=== PATIENT | female | born 1980 ===

== ENCOUNTER → 2020-07-24 13:56 | Outpatient (BNVA) | payer OTHER, SELFPAY | PROVIDERS: PCP Internal Medicine; Visit Provider Advanced Practice Midwife | DX: Z76.89 Persons encountering health services in other specified circumstances (principal) ==

== ENCOUNTER 2020-08-01 16:10 | Outpatient (REF) | payer OTHER, SELFPAY ==
--- NOTE | 2020-08-01 16:22 | US_ITS ---
EXAMINATION: ULTRASOUND TRANSVAGINAL AND PELVIC COMPLETE CLINICAL INFORMATION: Displacement of intrauterine contraceptive device. COMPARISON: None TECHNIQUE: Multiple 2-D grayscale and color Doppler transabdominal and transvaginal ultrasound images of the pelvis were obtained. FINDINGS: Uterus: Anteverted/retroflexed measuring 11.1 x 3.9 x 5.2 cm. The endometrial stripe measures up to 0.9 cm at the level the fundus. An echogenic IUD is seen extending to the level the fundus without surrounding abnormality. The cervix is unremarkable. Right ovary: 2.4 x 1.7 x 1.6 cm with a volume of 3.4 cc. Color Doppler showed no abnormal vascular flow. Left ovary: 2.4 x 2.3 x 1.6 cm with a volume of 4.6 cc. Color Doppler showed no abnormal vascular flow. Urinary bladder: Mildly distended without focal abnormality. US/US transvaginal IMPRESSION: 1. Anteverted/retroflexed uterus with IUD within the endometrial canal extending to the level the fundus without focal abnormality. No other significant abnormality.
--- NOTE | 2020-08-01 16:22 | US_ITS ---
EXAMINATION: ULTRASOUND TRANSVAGINAL AND PELVIC COMPLETE CLINICAL INFORMATION: Displacement of intrauterine contraceptive device. COMPARISON: None TECHNIQUE: Multiple 2-D grayscale and color Doppler transabdominal and transvaginal ultrasound images of the pelvis were obtained. FINDINGS: Uterus: Anteverted/retroflexed measuring 11.1 x 3.9 x 5.2 cm. The endometrial stripe measures up to 0.9 cm at the level the fundus. An echogenic IUD is seen extending to the level the fundus without surrounding abnormality. The cervix is unremarkable. Right ovary: 2.4 x 1.7 x 1.6 cm with a volume of 3.4 cc. Color Doppler showed no abnormal vascular flow. Left ovary: 2.4 x 2.3 x 1.6 cm with a volume of 4.6 cc. Color Doppler showed no abnormal vascular flow. Urinary bladder: Mildly distended without focal abnormality. US/US pelvic complete IMPRESSION: 1. Anteverted/retroflexed uterus with IUD within the endometrial canal extending to the level the fundus without focal abnormality. No other significant abnormality.
== END 2020-08-01 16:11 | disposition home or self-care (01) ==
LOC: HO.US 16:10
PROVIDERS: Visit Provider Advanced Practice Midwife
DX: T83.32XA Displacement of intrauterine contraceptive device, initial encounter (principal)
CPT/HCPCS: 76830; 76856

== ENCOUNTER → 2020-08-12 10:15 | Outpatient (BNVA) | payer OTHER, SELFPAY | PROVIDERS: PCP Internal Medicine; Visit Provider Advanced Practice Midwife | DX: Z76.89 Persons encountering health services in other specified circumstances (principal) ==

== ENCOUNTER 2022-01-05 10:37 | Outpatient (REF) | payer OTHER, SELFPAY ==
[2022-01-05 13:26] LABS: Syphilis Screen Nonreactive (Nonreactive)
[2022-01-05 16:02] LABS: CT PCR NOT DETECTED (Not Detect.); NG PCR NOT DETECTED (Not Detect.)
[2022-01-06 05:06] LABS: HBc Num1 0.05 S/CO (0.00-0.79); HIV AB/AG Nonreactive (Nonreactive); HIV Num 1 0.06 S/CO (0.00-0.99); Hepatitis B Core Antibody Nonreactive (Nonreactive); ~HepC Num1 0.06 S/CO (0.00-0.79); ~Hepatitis C Antibody Nonreactive (Nonreactive)
[2022-01-08 17:57] LABS: HPV mRNA E6/E7 rflx Not Detected (Not Detected)
== END 2022-01-05 10:38 | disposition home or self-care (01) ==
LOC: HO.LAB 10:37
PROVIDERS: PCP Internal Medicine; Visit Provider Advanced Practice Midwife
DX: Z01.419 Encounter for gynecological examination (general) (routine) without abnormal findings (principal); Z11.51 Encounter for screening for human papillomavirus (HPV); Z20.2 Contact with and (suspected) exposure to infections with a predominantly sexual mode of transmission
CPT/HCPCS: 36415; 86704; 86780; 86803; 87389; 87491; 87591; 87624; 88142

== ENCOUNTER 2022-09-29 15:33 | Outpatient (REF) | payer OTHER, SELFPAY ==
--- NOTE | ~2022-09-29 | MM_ITS ---
EXAMINATION: MM SCREENING DIGITAL BREAST TOMOSYNTHESIS, BILATERAL CLINICAL INFORMATION: Screening. Asymptomatic. The lifetime risk of breast cancer based on the Tyrer-Cuzick Model is 8.7%. COMPARISON: Mammography: August 06, 2014 and October 06, 2013 TECHNIQUE: Digital breast tomosynthesis is performed in both the craniocaudal and mediolateral oblique views along with computer-aided detection (CAD). Synthesized 2D images are generated from the tomosynthesis. FINDINGS: There are scattered areas of fibroglandular density (ACR BI-RADS breast composition Category b). There are no significant masses, abnormal calcifications, or other abnormalities. MM/MM tomosynthesis screening BI IMPRESSION: No significant changes from prior exam. ASSESSMENT: BI-RADS 1: Negative RECOMMENDATION: Routine annual mammography screening. This patient's information was entered into a reminder system with a target due date for their next mammogram.
== END 2022-09-29 15:34 | disposition home or self-care (01) ==
LOC: HO.MAMMO 15:33
PROVIDERS: PCP Internal Medicine; Visit Provider Advanced Practice Midwife
DX: Z12.31 Encounter for screening mammogram for malignant neoplasm of breast (principal)
CPT/HCPCS: 77063; 77067

== ENCOUNTER 2023-01-07 10:37 | Outpatient (REF) | payer OTHER, SELFPAY | END 2023-01-07 10:38 | disposition home or self-care (01) | LOC: HO.LNP 10:37 | PROVIDERS: PCP Internal Medicine; Visit Provider Advanced Practice Midwife | DX: Z13.89 Encounter for screening for other disorder (principal) ==

== ENCOUNTER 2023-01-07 11:15 | Outpatient (REF) | payer OTHER, SELFPAY ==
[2023-01-07 15:44] LABS: CT PCR NOT DETECTED (Not Detect.); NG PCR NOT DETECTED (Not Detect.)
[2023-01-08 08:49] LABS: HBc Num1 0.07 S/CO (0.00-0.79); HIV AB/AG Nonreactive (Nonreactive); HIV Num 1 0.07 S/CO (0.00-0.99); Hepatitis B Core Antibody Nonreactive (Nonreactive); ~HepC Num1 0.07 S/CO (0.00-0.79); ~Hepatitis C Antibody Nonreactive (Nonreactive)
[2023-01-08 08:55] LABS: Syphilis Screen Nonreactive (Nonreactive)
[2023-01-08 11:04] LABS: BV Int Neg Control Negative (Negative); BV Int Pos Control Positive (Positive)
== END 2023-01-07 11:16 | disposition home or self-care (01) ==
LOC: HO.LAB 11:15
PROVIDERS: Visit Provider Advanced Practice Midwife
DX: Z11.4 Encounter for screening for human immunodeficiency virus [HIV] (principal); Z20.2 Contact with and (suspected) exposure to infections with a predominantly sexual mode of transmission; N89.8 Other specified noninflammatory disorders of vagina
CPT/HCPCS: 0353U; 86704; 86780; 86803; 87389; 87480; 87510; 87660

== ENCOUNTER 2023-01-08 13:28 | Outpatient (REF) | payer OTHER, SELFPAY ==
--- NOTE | ~2023-01-08 | US_ITS ---
EXAMINATION: US PELVIS CLINICAL INFORMATION: Other noninflammatory disorders of ovary and fallopian tube. COMPARISON: Pelvic ultrasound 08/01/2020. TECHNIQUE: Ultrasound of the pelvis is performed using both transabdominal and transvaginal transducers along with Doppler. Transvaginal imaging is performed due to inadequate visualization transabdominally. FINDINGS: Uterus: The uterus is anteverted and measures 11.2 x 3.9 x 5.7 cm. IUD appears in good position. Nabothian cysts in the cervix. The double wall endometrial thickness is 2 mm. The uterus is smooth in contour and has normal myometrial echogenicity. No visible fibroid. Adnexa: Both ovaries are visualized. There is normal color flow to the adnexa. There is no ovarian torsion. There is no pelvic ascites or fluid collection. Right ovary measures 3.8 x 3.2 x 4.2 cm, volume 27 mL. There is a 3.5 cm mildly complex cyst with single thin septation and layering debris. This is an almost certainly benign cysts. No follow-up imaging recommended. No internal vascularity. Left ovary measures 3.3 x 2.1 x 2.4 cm, volume 9 mL. There is a corpus luteal cyst in the left ovary. US/US pelvic and transvaginal IMPRESSION: IUD in good position. New 3.5 cm mildly complex cyst with single thin septation and layering debris. This is an almost certainly benign cyst in a premenopausal woman. Best Practice Guideline: No follow-up imaging recommended for
== END 2023-01-08 13:29 | disposition home or self-care (01) ==
LOC: HO.US 13:28
PROVIDERS: PCP Internal Medicine; Visit Provider Advanced Practice Midwife
DX: N83.8 Other noninflammatory disorders of ovary, fallopian tube and broad ligament (principal)
CPT/HCPCS: 76830; 76856

== ENCOUNTER → 2023-02-03 13:08 | Outpatient (BNVA) | payer OTHER, SELFPAY | PROVIDERS: PCP Internal Medicine; Visit Provider Advanced Practice Midwife ==

== ENCOUNTER 2023-03-08 13:24 | Outpatient (REF) | payer OTHER, SELFPAY ==
--- NOTE | ~2023-03-08 | US_ITS ---
EXAMINATION: US PELVIS CLINICAL INFORMATION: Follow-up ovarian cyst; the last menstrual period is not specified. COMPARISON: None available. TECHNIQUE: Ultrasound of the pelvis is performed using both transabdominal and transvaginal transducers along with Doppler. Transvaginal imaging is performed due to inadequate visualization transabdominally. FINDINGS: Uterus: The uterus is anteverted and retroflexed. The uterus measures 10.2 x 3.9 x 4.8 cm. The double wall endometrial thickness is thin and is obscured by an intrauterine device, which is properly situated within the endometrial canal. The uterus is smooth in contour and has normal myometrial echogenicity. No visible fibroid. Adnexa: Both ovaries are visualized. There is normal color flow to the adnexa. There is no ovarian torsion. There is no pelvic ascites or fluid collection. A 1.7 x 1.2 x 1.6 cm left parapelvic cyst is noted. Right ovary measures 3.4 x 2.4 x 2.8 cm, volume 12.3 mL. There are physiologic follicles. Left ovary measures 2.7 x 1.8 x 2.5 cm, volume 6.1 mL. There are physiologic follicles. US/US pelvic and transvaginal IMPRESSION: 1. An intrauterine device is seen, properly situated within the endometrial canal. 2. A 1.7 cm left paraovarian cyst is noted. 3. The previously identified mildly complex 3.5 cm right ovarian cyst is not redemonstrated.
== END 2023-03-08 13:25 | disposition home or self-care (01) ==
LOC: HO.US 13:24
PROVIDERS: PCP Internal Medicine; Visit Provider Advanced Practice Midwife
DX: N83.291 Other ovarian cyst, right side (principal); R10.2 Pelvic and perineal pain
CPT/HCPCS: 76830; 76856

== ENCOUNTER 2023-03-23 15:02 | Outpatient (AMB) | payer OTHER, SELFPAY ==
--- NOTE | 2023-03-23 15:03 | A.OFFVIS_ITS ---
Intake Intake Visit Reasons: TV US Follow Up Intake Note: cell #[phone] The patient agreed to use of a medical coding manager during this encounter. Scribed for ANA Calle by Lety Hogue medical coding manager, on 03/23/2023 at 3:07 pm EST. Allergies No Known Allergies Allergy (Verified 03/23/23 15:03) HPI HPI Comments History of Present Illness Details Telehealth visit 3:07 pm -3:15 pm. Phone Call due to Covid-19 Pandemic. She presents via phone to discuss US results regarding follow up for right complex ovarian cyst. She is doing well with no complaints. [facility] Medical History Complex cyst of right ovary Hx of anxiety disorder Surgical History Hx of section Family History Maternal Grandmother Colon cancer Social History Alcohol intake: current Alcohol intake frequency: holidays/special occasions only Patient Tobacco Use Status: Never used Tobacco Substance Use Type: Marijuana Current occupational status: employed Sexual orientation: Straight/Heterosexual Gender identity: Female Female Reproductive History Menstrual Age of Menarche: 17 Physical Exam Const General: cooperative, healthy appearing, comfortable, no acute distress, well developed, alert and awake Results Reviewed Results Reviewed: EXAMINATION:? US PELVIS CLINICAL INFORMATION:? Follow-up ovarian cyst; the last menstrual period is not specified. COMPARISON: None available. TECHNIQUE: Ultrasound of the pelvis is performed using both transabdominal and transvaginal transducers along with Doppler. Transvaginal imaging is performed due to inadequate visualization transabdominally. FINDINGS: Uterus: The uterus is anteverted and retroflexed. The uterus measures 10.2 x 3.9 x 4.8 cm. The double wall endometrial thickness is thin and is obscured by an intrauterine device, which is properly situated within the endometrial canal. The uterus is smooth in contour and has normal myometrial echogenicity. ? No visible fibroid. Adnexa: Both ovaries are visualized. There is normal color flow to the adnexa. There is no ovarian torsion. There is no pelvic ascites or fluid collection. A 1.7 x 1.2 x 1.6 cm left parapelvic cyst is noted. Right ovary measures 3.4 x 2.4 x 2.8 cm, volume 12.3 mL. There are physiologic follicles. Left ovary measures 2.7 x 1.8 x 2.5 cm, volume 6.1 mL. There are physiologic follicles. US/US pelvic and transvaginal IMPRESSION: ? 1. An intrauterine device is seen, properly situated within the endometrial canal. ? 2. A 1.7 cm left paraovarian cyst is noted. ? 3. The previously identified mildly complex 3.5 cm right ovarian cyst is not redemonstrated. Assessment & Plan Assessment & Plan (1) Encounter to discuss test results: Code(s): Z71.2 - Person consulting for explanation of examination or test findings Plan: Discussed: US findings of: 1. An intrauterine device is seen, properly situated within the endometrial canal. 2. A 1.7 cm left paraovarian cyst is noted. 3. The previously identified mildly complex 3.5 cm right ovarian cyst is not redemonstrated. All of her questions and concerns were addressed to the best of my ability and shared decision making. She is agreeable to plan of care. (2) Left ovarian cyst: Code(s): N83.202 - Unspecified ovarian cyst, left side Telehealth Telehealth Location of provider rendering services: practice address Location of patient: other Patient Identification confirmed using: Name, : Yes Telehealth method: video Patient verbally consented to treatment: Yes Patient verbally consented to billing insurance company: Yes Patient informed of any privacy concerns related to visit: Yes Coding Level of Care Code Tele Est Pt Level 2 (73632) Diagnoses Encounter to discuss test results Z71.2 Left ovarian cyst N83.202
== END 2023-03-23 15:18 | disposition home or self-care (01) ==
LOC: HO.HWS 15:03
PROVIDERS: PCP Internal Medicine; Visit Provider Advanced Practice Midwife
DX: N83.202 Unspecified ovarian cyst, left side (principal); Z71.2 Person consulting for explanation of examination or test findings
CPT/HCPCS: 99212

== ENCOUNTER → 2023-03-23 15:02 | Outpatient (BNVA) | payer OTHER, SELFPAY | PROVIDERS: PCP Internal Medicine; Visit Provider Advanced Practice Midwife ==

== ENCOUNTER 2023-05-28 15:14 | Outpatient (REF) | payer OTHER, SELFPAY | END 2023-05-28 15:15 | disposition home or self-care (01) | LOC: HO.LNP 15:14 | PROVIDERS: PCP Internal Medicine; Visit Provider Advanced Practice Midwife | DX: Z13.89 Encounter for screening for other disorder (principal) ==

== ENCOUNTER 2023-05-28 15:14 | Outpatient (AMB) | payer OTHER, SELFPAY ==
--- NOTE | 2023-05-28 15:15 | MHC.OFFVIS ---
Intake Vital Signs 05/28/23 15:18 Height 5 ft 7 in Weight 178 lb 9.191 oz BMI 28.0 BP 110/70 Intake Visit Reasons: vagina lesion Intake Note: The patient agreed to use of a medical delivery technician during this encounter. Scribed for ANA Calle by Savannah Mehta medical delivery technician, on 05/28/2023 at 3:30 pm EST Scale Shooter Required: No Information Interpreted: non-clinical & clinical Care Transition Mgr: Care Transition Mgr Present (Ariadna Rizoloc CHANDLER) Accompanied by: Self / Same As Patient Allergies No Known Allergies Allergy (Verified 05/28/23 15:19) Is last menstrual period known: Yes Last menstrual period: 05/25/23 HPI HPI Comments History of Present Illness Details She presents with complaints of vaginal lump after wiping this morning. Currently sexually active with new partner. Admits to UPI. Uses Mirena IUD for BC. Admits to occasional light spotting in between menses. Denies any odors. Denies bleeding. STD testing offered; she accepts. [facility] Medical History Complex cyst of right ovary Hx of anxiety disorder Surgical History Hx of section Family History Maternal Grandmother Colon cancer Social History Alcohol intake: current Alcohol intake frequency: holidays/special occasions only Patient Tobacco Use Status: Never used Tobacco Substance Use Type: Marijuana Current occupational status: employed Sexual orientation: Straight/Heterosexual Gender identity: Female Female Reproductive History Menstrual Age of Menarche: 17 Date of last menstrual period: 05/25/23 control method: progestin IUCD Review of Systems Const All systems reviewed & are unremarkable except as noted in HPI and below Physical Exam Vital Signs: Last Vital Signs BP 110/70 05/28/23 15:18 BMI result Body Mass Index 28.0 Const General: cooperative, no acute distress, well developed and alert External Female Exam: normal external appearance Speculum Exam - Vagina: normal appearance of the vagina and abnormal vaginal discharge (white, clumpy) Speculum Exam - Cervix: normal appearance of the cervix and Other cervical findings present (IUD strings present) Bimanual exam- vagina & uterus: normal bimanual exam, uterine size normal, uterine shape normal and non-tender Bimanual Exam- Adnexa, other: normal adnexae and no masses Assessment & Plan Assessment & Plan (1) Vulvar lump: Code(s): N90.89 - Other specified noninflammatory disorders of vulva and perineum Plan: Normal exam. Counseled on sebaceous glands. RTO prn. (2) Potential exposure to STD: Code(s): Z20.2 - Contact with and (suspected) exposure to infections with a predominantly sexual mode of transmission Orders: Orders Hepatitis B Core Antibody Today Z20.2 - Contact with and (suspected) exposure to infections with a predominantly sexual mode of transmission HIV Ab/Ag Today Z20.2 - Contact with and (suspected) exposure to infections with a predominantly sexual mode of transmission Hepatitis C Antibody Today Z20.2 - Contact with and (suspected) exposure to infections with a predominantly sexual mode of transmission Syphilis Screen Today Z20.2 - Contact with and (suspected) exposure to infections with a predominantly sexual mode of transmission Coding Level of Care Code Est Pt Level 3 (24636) Diagnoses Vulvar lump N90.89 Potential exposure to STD Z20.2
[2023-05-28 15:18] VITALS: BP 110/70; BMI 28.0
== END 2023-05-28 15:43 | disposition home or self-care (01) ==
PROVIDERS: PCP Internal Medicine; Visit Provider Advanced Practice Midwife
DX: N90.89 Other specified noninflammatory disorders of vulva and perineum (principal); Z20.2 Contact with and (suspected) exposure to infections with a predominantly sexual mode of transmission
CPT/HCPCS: 99213

== ENCOUNTER 2023-05-28 15:48 | Outpatient (REF) | payer OTHER, SELFPAY ==
[2023-05-28 20:49] LABS: CT PCR NOT DETECTED (Not Detect.); NG PCR NOT DETECTED (Not Detect.)
[2023-05-29 03:57] LABS: Syphilis Screen Nonreactive (Nonreactive)
[2023-05-29 04:33] LABS: HBc Num1 0.08 S/CO (0.00-0.79); HIV AB/AG Nonreactive (Nonreactive); HIV Num 1 0.06 S/CO (0.00-0.99); Hepatitis B Core Antibody Nonreactive (Nonreactive); ~HepC Num1 0.04 S/CO (0.00-0.79); ~Hepatitis C Antibody Nonreactive (Nonreactive)
[2023-05-29 12:51] LABS: BV Int Neg Control Negative (Negative); BV Int Pos Control Positive (Positive)
== END 2023-05-28 15:49 | disposition home or self-care (01) ==
LOC: HO.LAB 15:48
PROVIDERS: Visit Provider Advanced Practice Midwife
DX: Z11.4 Encounter for screening for human immunodeficiency virus [HIV] (principal); N76.0 Acute vaginitis
CPT/HCPCS: 0353U; 86704; 86780; 86803; 87389; 87480; 87510; 87660

== ENCOUNTER 2023-10-18 15:47 | Outpatient (REF) | payer OTHER, SELFPAY ==
--- NOTE | ~2023-10-18 | MM_ITS ---
EXAMINATION: MM SCREENING DIGITAL BREAST TOMOSYNTHESIS, BILATERAL CLINICAL INFORMATION: Screening. Asymptomatic. COMPARISON: Mammography: This study is compared with prior exams dating back to 2022. TECHNIQUE: Digital breast tomosynthesis is performed in both the craniocaudal and mediolateral oblique views along with computer-aided detection (CAD). Synthesized 2D images are generated from the tomosynthesis. FINDINGS: There are scattered areas of fibroglandular density (ACR BI-RADS breast composition Category b). There are no significant masses, abnormal calcifications, or other abnormalities. MM/MM tomosynthesis screening BI IMPRESSION: No mammographic evidence of malignancy. ASSESSMENT: BI-RADS BI-RADS 1 - Negative RECOMMENDATION: Routine annual mammography screening. 1 year F/U This examination should not preclude the clinical evaluation of a suspicious palpable abnormality. This patient's information was entered into a reminder system with a target due date for their next mammogram.
== END 2023-10-18 15:48 | disposition home or self-care (01) ==
LOC: HO.MAMMO 15:47
PROVIDERS: PCP Internal Medicine; Visit Provider Internal Medicine
DX: Z12.31 Encounter for screening mammogram for malignant neoplasm of breast (principal)
CPT/HCPCS: 77063; 77067

== ENCOUNTER → 2023-10-18 16:15 | Outpatient (BNV) | payer OTHER, SELFPAY | PROVIDERS: PCP Internal Medicine; Visit Provider Radiology Diagnostic Radiology | DX: Z12.31 Encounter for screening mammogram for malignant neoplasm of breast (principal) | CPT/HCPCS: 77063; 77067 ==

== ENCOUNTER 2024-07-27 15:50 | Outpatient (REF) | payer OTHER, SELFPAY ==
[2024-07-29 12:26] LABS: Bacterial Vaginosis PCR NEGATIVE (Negative); Candida Group PCR NOT DETECTED (Not Detect); Candida glab krusei PCR NOT DETECTED (Not Detect); Trichomonas vaginalis PCR NOT DETECTED (Not Detect)
[2024-07-29 13:40] LABS: CT PCR NOT DETECTED (Not Detect.); NG PCR NOT DETECTED (Not Detect.)
== END 2024-07-27 15:51 | disposition home or self-care (01) ==
LOC: HO.LNP 15:50
PROVIDERS: PCP Internal Medicine; Visit Provider Advanced Practice Midwife
DX: Z01.419 Encounter for gynecological examination (general) (routine) without abnormal findings (principal)
CPT/HCPCS: 0352U; 87491; 87591

== ENCOUNTER 2024-07-27 15:50 | Outpatient (AMB) | payer OTHER, SELFPAY ==
--- NOTE | 2024-07-27 15:55 | MHC.OFFVIS ---
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 Doing well with concerns: Interested in a tubal ligation. Has random cycles with the Mirena. Currently is not sexually active. She denies vaginal itching and irritation. STI screening offered; she accepts. She tries to eat healthy and stays active with exercise. Denies family history of breast or ovarian. Family history of colon cancer-maternal grandmother. Last pap smear 2021, negative. 2017 ASCUS. Mammogram: 2023. COUNT INCLUDES THE [facility] Medical History Hx of anxiety disorder Surgical History Hx of section Family History Maternal Grandmother Colon cancer Social History Alcohol intake: current Alcohol intake frequency: holidays/special occasions only Patient Tobacco Use Status: Never used Tobacco Substance Use Type: Marijuana Current occupational status: employed Sexual orientation: Straight/Heterosexual Gender identity: Female Female Reproductive History Menstrual Age of Menarche: 17 Date of last menstrual period: 07/11/24 control method: progestin IUCD Total pregnancies: 3 Full term: 3 Premature: 0 Number of Living Children: 3 Ab induced: 0 Ab spontaneous: 0 Ectopics: 0 Multiple births: 0 Date of last pap smear: 01/05/22 History of abnormal pap smear: No History of STI: No Review of Systems Const All systems reviewed & are unremarkable except as noted in HPI and below Reports as per HPI Eyes Reports no additional complaints ENT Reports no additional complaints Card Reports no additional complaints Resp Reports no additional complaints GI Reports as per HPI and Reports no additional complaints Reports as per HPI Musc Reports no additional complaints Skin/Breast Reports as per HPI Neuro Reports no additional complaints Psych Reports no additional complaints Endo Reports no additional complaints Alex/Lymph Reports no additional complaints Aller/Immun Reports no additional complaints Physical Exam Vital Signs: Last Vital Signs BP 102/76 07/27/24 15:56 BMI result Body Mass Index 31.8 Const General: cooperative, healthy appearing, no acute distress, well developed and alert Orientation/consciousness: patient oriented x3 HEENT Head: Yes normal to inspection Eyes General: appearance normal, both eyes and all related structures Neck Neck: Yes normal visual inspection Thyroid: Thyroid normal Chest Chest palpation & inspection: normal inspection of the chest and other (no puckering, dimpling, peau de orange, retraction, discharge, masses) Breast/axilla inspection: normal inspection of the breasts Breast/axilla palpation: normal palpation of the breasts Resp Effort & Inspection: normal respiratory effort GI Inspection: Yes normal to inspection Palpation (GI): Soft to palpation Rectal Exam - Female: deferred General: Yes bladder normal to palpation External Female Exam: normal external appearance and normal appearance of the urethra Speculum Exam - Vagina: normal appearance of the vagina, normal palpation and normal vaginal discharge Speculum Exam - Cervix: normal appearance of the cervix, normal palpation and Other cervical findings present (String short at the os) Bimanual exam- vagina & uterus: normal bimanual exam, normal palpation, uterine size normal, bladder normal to palpation, normal palpation and non-tender Bimanual Exam- Adnexa, other: no masses Skin General skin exam: no rashes or lesions noted Rashes: no rashes Neuro General: patient oriented x3 Cognition (Neuro): normal cognition Extrem General: Yes normal to inspection Psych Attitude: cooperative Thought process: Normal thought process present Assessment & Plan Assessment & Plan (1) Encounter for well woman exam with routine gynecological exam: Code(s): Z01.419 - Encounter for gynecological examination (general) (routine) without abnormal findings Category: Medical Plan Discussed: Current recommendations for pap smears per ASCCP guidelines. Breast awareness and periodic breast exams. Mammogram yearly. Maintain a healthy lifestyle including a well balanced diet and routine exercise. Use condoms for STI and prevention. Counseled regarding the efficacy use of CDC vis chart risks benefits of keeping the Mirena IUD in place, verses a tubal ligation risks and benefits. She has several years left with the Mirena device and wants to keep it for now and will consider her options when it is due to be changed out. Colonoscopy >45, or at risk sooner. Patient verbalizes understanding and agrees to the plan of care. She was given opportunity to ask questions and all questions were answered to the best of my ability. 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 This note is constructed using voice recognition software. While every effort has been made to ensure accuracy, humanities coordinator errors may have been included. Coding Level of Care Code Est Pt Prev Care 40-64y(49184) Diagnoses Encounter for well woman exam with routine gynecological exam Z01.419
[2024-07-27 15:56] VITALS: BP 102/76; BMI 31.8
== END 2024-07-27 16:28 | disposition home or self-care (01) ==
LOC: HO.HWS 15:50
PROVIDERS: PCP Internal Medicine; Visit Provider Advanced Practice Midwife
DX: Z01.419 Encounter for gynecological examination (general) (routine) without abnormal findings (principal)
CPT/HCPCS: 99396

== ENCOUNTER 2024-12-07 16:31 | Emergency (ER) | payer OTHER, SELFPAY ==
[2024-12-07 16:42] VITALS: BP 115/73; PULSE 79; RESP 18; TEMP 36.8; O2SAT 96; BMI 31.9
--- NOTE | 2024-12-07 16:43 | ED_ITS ---
HPI - General Adult General Chief complaint: Extremity Injury, Upper Stated complaint: left arm pain Time Seen by Provider: 12/07/24 23:29 Source: patient Limitations: no limitations History of Present Illness ED Provider: Rubi Cutler PA-C HPI narrative: 45-year-old female with a history of anxiety presents with left upper extremity discomfort since this morning. Patient having discomfort over left upper extremity with the radiation to the fingers. Denies weakness of upper extremity, neck pain or paresthesia. Patient denies trauma, new heavy lifting or exercise that could have precipitated her symptoms. Patient states she does perform repetitive activity at work. Pain worse with movement of left upper extremity. Denies chest pain or shortness of breath. Patient states she had an episode of ?tingling sensation around her mouth this morning. Related Data Home Medications ?Medication ?Instructions ?Recorded ?Confirmed levonorgestrel 21 mcg/24 hr (up to intrauterine 07/24/20 8 years) 52 mg intrauterine device (Mirena) Allergies Allergy/AdvReac Type Severity Reaction Status Date / Time No Known Allergies Allergy Verified 12/07/24 16:44 Review of Systems 2 Review of Systems: Yes all other systems are reviewed and are negative Constitutional: Constitutional: Denies fatigue, Denies fever(s) and Denies headache(s) ENT: Denies headache(s) and Denies neck pain Cardiovascular: Cardiovascular: Denies chest pain and Denies dyspnea Respiratory: Respiratory: Denies cough and Denies dyspnea Gastrointestinal: Gastrointestinal: Denies abdominal pain, Denies nausea and Denies vomiting Musculoskeletal: Musculoskeletal: Denies back pain, Reports arthralgias, Denies joint swelling, Denies neck pain, Denies numbness, Reports radiating pain into limb and Denies tingling Neurologic: Denies headache(s), Denies numbness and Denies tingling Endocrine: Endocrine: Denies fatigue PMFSH Past Medical History Attestation statement: The following information was validated with the patient. Medical History Hx of anxiety disorder Surgical History Hx of section Family History Family History Maternal Grandmother Colon cancer Social History Social History Alcohol intake: current Alcohol intake frequency: does not drink Patient Tobacco Use Status: Never used Tobacco Smoked in Last 30 Days: No Use of substances other than those prescribed or required for medical reasons: Yes Substance Use Type: Marijuana Advance Directives: No Advance Directives Information Provided: No Do you have a plan to hurt others: No Plan Patient : No Current occupational status: employed Sexual orientation: Straight/Heterosexual Gender identity: Female Physical Exam ED Vital Signs: Vital Signs - 24 hr 12/07/24 16:42 12/07/24 22:16 Temperature 98.3 F 97.7 F Pulse Rate 79 75 Respiratory Rate 18 16 Blood Pressure 115/73 108/84 Pulse Oximetry 96 98 Oxygen Delivery Method Room Air Room Air BMI result Body Mass Index 31.9 Const Other: Alert well-appearing Orientation/consciousness: patient oriented x3 Resp Effort & Inspection: normal respiratory effort Cardio Other: Normal peripheral perfusion Skin Other: Warm dry no rash Neuro General: patient oriented x3, gait normal, no focal motor deficits and CN's II- XI intact bilaterally Extrem Other: Strength 5/5 bilateral upper extremities with resistance, pain elicited with resisted range of motion of left upper extremity Psych Other: Cooperative, anxious to some degree Course Course Course Narrative: This is a rapid medical exam performed by Parris Batista NP: Additional HPI, ROS, PE not included below will be deferred to primary provider. Patient is a 44-year-old female presenting with complaint of left arm pain, facial tingling, and tongue numbness since this morning. Denies injury. Denies chest pain. Reports a lot of stress. Plan: EKG labs Medical Decision Making Medical Decision Making MDM Narrative: 45-year-old female with a history of anxiety presents with left upper extremity discomfort since this morning. Patient having discomfort over left upper extremity with the radiation to the fingers. Denies weakness of upper extremity, neck pain or paresthesia. Patient denies trauma, new heavy lifting or exercise that could have precipitated her symptoms. Patient does perform repetitive activity at work. Pain worse with movement of left upper extremity. Denies chest pain or shortness of breath. Patient states she had an episode of ?tingling sensation around her mouth this morning. Problem: Anxiety History: Per patient I have considered the following differential diagnoses: Musculoskeletal strain, cervical radiculopathy, anxiety/panic attack, atypical presentation for ACS Plan: The patient's exam was most consistent with musculoskeletal strain, the pain is reproducible with movement of the left upper extremity, she does perform repetitive activities at work which is the likely precipitating factor. Atypical presentation for ACS was considered, to note the patient has no risk factors for coronary artery disease, her heart score is 0. Given pain migrating down left upper extremity thought about cervical radiculopathy, however she is not having associated neck pain, no paresthesias of the left arm. In regard to the focal transient paresthesia of her face, the patient admits that she was perseverating over her symptoms, thinking that they were cardiac in nature, I feel she could have been having acute anxiety during that time. I have independently reviewed the following tests: Labs: No leukocytosis, not anemic, no electrolyte abnormality, troponin negative EKG: Normal sinus rhythm, rate of 70, no ischemic changes, QTC 438 Lab Data 12/07/24 17:08 12/07/24 17:08 Labs: Lab Results 12/07/24 Range/Units 17:08 WBC 8.0 (4.8-10.8) X10*3/uL RBC 3.96 L (4.20-5.50) X10*6/uL Hgb 12.3 (12.0-16.0) g/dl Hct 37.1 (37.0-47.0) % MCV 93.7 (80.0-98.0) fL MCH 31.1 (27.0-33.0) pg MCHC 33.2 (31.0-35.0) g/dl RDW 13.2 (11.0-16.0) % Plt Count 286 (160-400) X10*3/uL MPV 9.3 L (9.4-12.3) fL Immature Gran % (Auto) 0.1 (0.0-0.4) % Neut % (Auto) 63.2 (45-73) % Lymph % (Auto) 27.8 (20-40) % [place] % (Auto) 7.9 (2-11) % Eos % (Auto) 0.6 (0-4) % Baso % (Auto) 0.4 (0-2) % Lymph # (Auto) 2.2 (1.2-4.9) X10*3/uL [place] # (Auto) 0.6 (0.1-1.2) X10*3/uL Eos # (Auto) 0.1 (0.0-0.4) X10*3/uL Baso # (Auto) 0.0 (0.0-0.2) X10*3/uL Abs Immat Gran (auto) 0.01 (0.00-0.03) X10*3/uL Absolute Neuts (auto) 5.0 (2.0-8.3) x10*3/uL Absolute Nucleated RBC 0.000 (0.0-0.012) X10*3/uL Nucleated RBC % (auto) 0.0 (0.0-0.2) /100WBC Sodium 139 (135-145) mmol/L Potassium 3.7 (3.3-5.1) mmol/L Chloride 107 (96-108) mmol/L Carbon Dioxide 26 (22-29) mmol/L Anion Gap 10 L (12-20) BUN 5 L (9-16) mg/dL Creatinine 0.70 (0.5-1.4) mg/dL Estim Creat Clear Calc 122.2 Estimated GFR > 60 Random Glucose 80 (60-115) mg/dL Calcium 8.7 (8.4-10.2) mg/dL Total Bilirubin 0.3 (0.0-1.0) mg/dL AST 18 (5-31) U/L ALT 12 (0-31) U/L Alkaline Phosphatase 48 (39-117) U/L Troponin I High Sens < 2.7 (<3.5-17.0) ng/L Total Protein 6.8 (6.5-8.0) g/dL Albumin 4.0 (3.5-5.0) g/dL Discharge Plan Discharge Clinical Impression: Arm pain, left, Paresthesia Patient Disposition: Home, Self-Care Instructions: Paresthesia (ED), Arm Pain (ED) Additional Instructions: all of your screening labs including a cardiac enzymes were normal. there were no concerning changes on your EKG. Repetitive activity can cause pain and tingling in the upper extremities, if the nerve roots in your neck are impinged. The tingling in your face is likely related to your stress and anxiety. Follow up with your primary care provider, they may refer you to physical therapy if your arm discomfort continues. In regard to your recent psychosocial stressors, you may benefit from speaking with a therapist. Prescriptions: No Action Mirena 20 mcg/24 hours (6 yrs) 52 mg intrauterine device intrauterine Stand Alone Forms: Work/School Release Interventions: ED Discharge Assessment Last Done: 12/08/24 00:54 Discharge Date/Time: 12/08/24 01:33 Print Language: Martiniquais
--- NOTE | 2024-12-07 16:46 | ECG_ITS ---
Test Reason : L ARM PAIN Blood Pressure : */* mmHG Vent. Rate : 70 BPM Atrial Rate : 70 BPM P-R Int : 148 ms QRS Dur : 90 ms QT Int : 406 ms P-R-T Axes : 20 -11 -4 degrees QTcB Int : 438 ms Normal sinus rhythm Minimal voltage criteria for LVH, may be normal variant ( R in aVL ) Cannot rule out Anterior infarct , age undetermined Abnormal ECG No previous ECGs available Referred By: Ayala Batista Electronically Signed By: CANDY ABRAMS MD
[2024-12-07 17:12] LABS: MANUAL DIFF FLAG NO
[2024-12-07 17:19] LABS: Basophils Percent Auto 0.4 % (0-2); Eosinophils Absolute Auto 0.1 X10*3/uL (0.0-0.4); Eosinophils Percent Auto 0.6 % (0-4); Hematocrit 37.1 % (37.0-47.0); Hemoglobin 12.3 g/dl (12.0-16.0); Imm Gran Abs Auto 0.01 X10*3/uL (0.00-0.03); Imm Gran Pct Auto 0.1 % (0.0-0.4); Lymphocytes Absolute Auto 2.2 X10*3/uL (1.2-4.9); Lymphocytes Percent Auto 27.8 % (20-40); Mean Corpuscular HGB Conc 33.2 g/dl (31.0-35.0); Mean Corpuscular Hemoglobin 31.1 pg (27.0-33.0); Mean Corpuscular Volume 93.7 fL (80.0-98.0); Mean Platelet Volume 9.3 fL (9.4-12.3); Monocytes Absolute Auto 0.6 X10*3/uL (0.1-1.2); Monocytes Percent Auto 7.9 % (2-11); Neutrophils Percent Auto 63.2 % (45-73); Platelet Count 286 X10*3/uL (160-400); Red Blood Count 3.96 X10*6/uL (4.20-5.50); Red Cell Distribution Width 13.2 % (11.0-16.0)
[2024-12-07 17:27] LABS: Alanine Aminotransferase 12 U/L (0-31); Alkaline Phosphatase 48 U/L (39-117); Anion Gap 10 (12-20); Aspartate Amino Transferase 18 U/L (5-31); Bilirubin Total 0.3 mg/dL (0.0-1.0); Blood Urea Nitrogen 5 mg/dL (9-16); Calcium 8.7 mg/dL (8.4-10.2); Carbon Dioxide 26 mmol/L (22-29); Chloride 107 mmol/L (96-108); Creatinine Clr Calc Pharmacy 122.2; Estimated Glomerular Filt Rate > 60; Glucose Random 80 mg/dL (60-115); Potassium 3.7 mmol/L (3.3-5.1); Sodium 139 mmol/L (135-145); Total Protein 6.8 g/dL (6.5-8.0)
[2024-12-07 17:35] LABS: Troponin-I High Sensitivity < 2.7 ng/L (<3.5-17.0)
[2024-12-07 22:16] VITALS: BP 108/84; PULSE 75; RESP 16; TEMP 36.5; O2SAT 98
--- NOTE | 2024-12-07 23:03 | MHC.EDTECH ---
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
[2024-12-08 00:54] VITALS: BP 108/84; PULSE 75; RESP 16; TEMP 36.5; O2SAT 98
== END 2024-12-08 01:33 | disposition home or self-care (01) ==
PROVIDERS: Registered Nurse Emergency; Emergency Provider Internal Medicine
DX: M79.602 Pain in left arm (principal); R20.2 Paresthesia of skin
CPT/HCPCS: 36415; 80053; 84484; 85025; 93005; 99283; 99284

== ENCOUNTER → 2024-12-07 16:46 | Outpatient (BNV) | payer OTHER, SELFPAY | PROVIDERS: Emergency Provider Internal Medicine; Visit Provider Internal Medicine Cardiovascular Disease | DX: R94.31 Abnormal electrocardiogram [ECG] [EKG] (principal); M79.602 Pain in left arm | CPT/HCPCS: 93010 ==

== ENCOUNTER 2025-02-14 11:46 | Outpatient (REF) | payer OTHER, SELFPAY ==
[2025-02-14 16:31] LABS: Bacterial Vaginosis PCR POSITIVE (Negative); Candida Group PCR NOT DETECTED (Not Detect); Candida glab krusei PCR NOT DETECTED (Not Detect); Trichomonas vaginalis PCR NOT DETECTED (Not Detect)
[2025-02-14 17:01] LABS: CT PCR NOT DETECTED (Not Detect.); NG PCR NOT DETECTED (Not Detect.)
== END 2025-02-14 11:47 | disposition home or self-care (01) ==
LOC: HO.LNP 11:46
PROVIDERS: PCP Internal Medicine; Visit Provider Advanced Practice Midwife
DX: N89.8 Other specified noninflammatory disorders of vagina (principal)
CPT/HCPCS: 81515; 87491; 87591

== ENCOUNTER 2025-02-14 11:46 | Outpatient (AMB) | payer OTHER, SELFPAY ==
--- NOTE | 2025-02-14 11:48 | MHC.OFFVIS ---
Intake Visit Reasons: ?BV Intake Note: Per patient, odor worsening before starts period. No burning, no itching, no pain. Cloth Colors Examiner: Cloth Colors Examiner Present (Donna) Accompanied by: Self / Same As Patient Allergies No Known Allergies Allergy (Verified 02/14/25 11:51) HPI Comments Details: Patient is here today with concerns w/vaginal odor, increased pale yellow discharge, no pelvic pain or urinary symptoms. Seen in Urgent care 5-6 months ago for urinary symptoms and was told all was normal. No new intimate partner. Mirena IUD user, placed 07/2020. [facility] Medical History IUD strings lost Hx of anxiety disorder Surgical History Hx of section Family History Maternal Grandmother Colon cancer Social History Alcohol intake: current Alcohol intake frequency: does not drink Patient Tobacco Use Status: Never used Tobacco Substance Use Type: Marijuana Current occupational status: employed Sexual orientation: Straight/Heterosexual Gender identity: Female Female Reproductive History Menstrual Age of Menarche: 17 Review of Systems Const All systems reviewed & are unremarkable except as noted in HPI and below Physical Exam Const General: cooperative, healthy appearing and no acute distress Orientation/consciousness: patient oriented x3 GI Inspection: Yes normal to inspection Palpation (GI): Soft to palpation and Other GI palpation findings present (Nontender) Rectal Exam - Female: visual inspection normal General: Yes bladder normal to palpation External Female Exam: normal appearance of the urethra Speculum Exam - Vagina: normal appearance of the vagina, normal palpation and abnormal vaginal discharge (Copious yellow) Speculum Exam - Cervix: normal appearance of the cervix, normal palpation and Other cervical findings present (IUD strings not found unable to tease down with a Cytobrush) Bimanual exam- vagina & uterus: normal bimanual exam, normal palpation, uterine size normal, bladder normal to palpation, normal palpation, uterine shape normal and non-tender Bimanual Exam- Adnexa, other: normal adnexae Neuro General: patient oriented x3 Assessment & Plan Assessment & Plan (1) IUD strings lost: Code(s): T83.32XA - Displacement of intrauterine contraceptive device, initial encounter Category: Medical Qualifiers: Encounter type: initial encounter Qualified Code(s): T83.32XA - Displacement of intrauterine contraceptive device, initial encounter Plan: Plan pelvic ultrasound for positioning rule out migration, follow up pending results. The patient expressed understanding and agreement with the plan of care. All of her questions and concerns were addressed to the best of my ability. (2) Vaginal odor: Code(s): N89.8 - Other specified noninflammatory disorders of vagina Plan: BV GC chlamydia and gonorrhea obtained await results for plan of care. (3) Vaginal discharge: Code(s): N89.8 - Other specified noninflammatory disorders of vagina Plan: As noted above. Plan The patient expressed understanding and agreement with the plan of care. All of her questions and concerns were addressed to the best of my ability. This note is constructed using voice recognition software. While every effort has been made to ensure accuracy, commercial fisher errors may have been included. Orders: Orders Bacterial Vaginosis Panel Today N89.8 - Other specified noninflammatory disorders of vagina US pelvic and transvaginal Today T83.32XA - Displacement of intrauterine contraceptive device, initial encounter CT NG by PCR Today N89.8 - Other specified noninflammatory disorders of vagina Coding Level of Care Code Est Pt Level 3 (60321) Diagnoses Intrauterine contraceptive device threads lost, initial encounter T83.32XA Encounter type: initial encounter Vaginal odor N89.8 Vaginal discharge N89.8
--- OUTSIDE RECORDS SUMMARY | 2025-02-14 12:31 | XMS_ITS | Clinical Summary ---
Author Organization [address] [place] [address] [place] [phone] Phone Care Team Providers Care Biostatistics Professor Name Role Phone Jazmyn Parra MD Primary Care Prov ider Allergies No known active allergies Medications buPROPion SR (WELLBUTRIN SR) 200 mg 12 hr tablet Take 1 tablet by mouth daily. 300mg x1 Active Active Problems Problem Noted Date Diagnosed Date COVID-19 virus infection 09/02/2020 Snoring 11/16/2017 Overview (08/30/2024): 11/2017 Home Sleep Study did not reveal sleep apnea. Anatomical narrow angle, bilateral 01/28/2017 Overview (08/30/2024): s/p LPI Wilber Immunizations Name Administration Dates Next Due Influenza trivalent, 0.5mL, preservative free (Fluarix; FluLaval; Fluzone) ages 6mo and older (Afluria) 3 years and older 06/04/2009 Td Tetanus diptheria (Tdvax) 7yo and older 12/05 Tdap Tetanus diptheria acell ular pertussis (Boostrix; Adacel) 7yo and older 07/09/2008 Surgical History Surgery Date Site/Laterality Comments SECTION PROCEDURE: HISTORICAL ; COMMENT: x 3, dense adhesions uterus to anterior abdominal wall Medical History Medical History Date Comments Obese DX:Obese Family History Medical History Relation Name Comments CABG Father Other: Other Maternal Grandfather had pro blems with eyes but doesn't know what Cataracts Maternal Grandmother Diabetes Maternal Grandmother type 2 Diabetes Mother HTN, arthritis Blindness Other maternal great grandmother Breast cancer Neg Hx Colon cancer Neg Hx Glaucoma Neg Hx Macular degeneration Neg Hx Ovarian cancer Neg Hx Strabismus Neg Hx Relation Name Status Comments Father Alive dm, [place] at age 6 3 Maternal Grandfather Maternal Grandmother Mother Alive arthritis, dm, Other Social History Tobacco Use Types Packs/Day Years Used Date Smoking Tobacco: Never Smokeless Tobacco: Never Alcohol Use Standard Drinks/Week Comments Yes 0 (1 standard drink = 0.6 oz pur e alcohol) Comments Unknown Sex and Gender Information Value Date Recorded Sex Assigned at Not on file Legal Sex Female 12:25 PM EST Gender Identity Not on file Sexual Orientation Not on file Obstetrics History Plan of Treatment Health Maintenance Due Date Last Done Comments Breast Cancer Screening 1982 Hepatitis B Vaccines (1 of 3 - 19+ 3-dose series) 2001 Cervical Cancer Screening: P ap Smear 07/18/2021 07/18/2018, 07/18/2018, 07/18/2018 Depression Screening 08/22/2022 Hepatitis C Screening 08/22/2022 Social Influencers of Health Screening 08/22/2022 COVID-19 Vaccine ( - 2023-2 5 season) 2024 Influenza Vaccine (Season Ended) 2025 06/04/2009 DTaP,Tdap,and Td Vaccines (3 - Td or Tdap) 12/05/2028 12/05/2018, 07/09/2008 HIV Screening Completed 06/04/2009 HIB Vaccines Aged Out No longer eligi ble based on patient's age to complete this topic HPV Vaccines Aged Out No longer eligi ble based on patient's age to complete this topic Hepatitis A Vaccines Aged Out No long er eligible based on patient's age to complete this topic IPV Vaccines Aged Out No longer eligi ble based on patient's age to complete this topic MMR Vaccines Aged Out No longer eligi ble based on patient's age to complete this topic Meningococcal ACWY Vaccine Aged Out N o longer eligible based on patient's age to complete this topic Meningococcal B Vaccine Aged Out No l onger eligible based on patient's age to complete this topic Pneumococcal Vaccine: Pediatrics (0 to 5 Years) and At-Risk Patients (6 to 64 Years) Aged Out No longer eligible b ased on patient's age to complete this topic RSV Immunization Patients Under 20 months Aged Out No longer eligible b ased on patient's age to complete this topic Varicella Vaccines Aged Out No longer eligible based on patient's age to complete this topic Procedures Procedure Name Priority Date/Time Associated Diagnosis Comments PAP SMEAR Routine 07/18/2018 HIV SCREENING Routine 06/04/2009 from Last 3 Months or Most Recently Relevant to Health Maintenance Results * Pap smear (07/18/2018) 07/18/2018 Narrative HISTORICAL TESTING LAB RESULTING AGENCY - 07/22/2018 8:17 AM EST [id number] THINPREP PAP, IMAGED: NEGATIVE FOR SQUAMOUS INTRAEPITHELIAL LESION AND MALIGNANCY . ABUNDANT RED BLOOD CELLS ARE PRESENT. KIMBERLY MATUTE(ASCP) (CASE ELECTRONICALLY SIGNED 07 21 2018) RESULT OF APTIMA HIGH RISK HPV ASSAY: HIGH RISK HPV: ??NEGATIVE (SEROTYPES 16,18,31,33,35,39,45,51,52,56,58,59,66,68) COMPLETED ON 2018-07-20 ADEQUACY: SATISFACTORY ENDOCERVICAL/TRANSFORMATION ZONE COMPONENT PRESENT. SOURCE: THINPREP PAP HPV ANY DX: ??REFLEX 16 AND 18, CERVICAL, IMAGED: CLINICAL INFORMATION: HPV ANY DIAGNOSIS. Z12.4, Z01.419, R87.610, PAP HX: POSITIVE ATYPICAL SQUAMOUS CELLS OF UNDETERMINED SIGNIFICANCE (ASCUS) us Bean Mock CN LAB CYTOLOGY ORDERA BLES Final Result HISTORICAL TESTING LAB RESULTING AGENCY * HIV Screening (06/04/2009) HIV Screening Abstracted us Historical Provider HEALTH MAINTENANCE Final Result from Last 3 Months or Most Recently Relevant to Health Maintenance Insurance [employer] Care Teams Biostatistics Professor Relationship Specialty Start Date End Date Jazmyn Parra MD [address] [place] [id number] PCP - General Internal Medicine 06/15/22
== END 2025-02-14 12:23 | disposition home or self-care (01) ==
LOC: HO.HWS 11:46
PROVIDERS: PCP Internal Medicine; Visit Provider Advanced Practice Midwife
DX: T83.32XA Displacement of intrauterine contraceptive device, initial encounter (principal); N89.8 Other specified noninflammatory disorders of vagina
CPT/HCPCS: 99213

== ENCOUNTER 2025-03-20 16:01 | Outpatient (REF) | payer OTHER, SELFPAY ==
--- NOTE | ~2025-03-20 | US_ITS ---
EXAMINATION: US PELVIS CLINICAL INFORMATION: IUD check COMPARISON: March 08, 2023 TECHNIQUE: Ultrasound of the pelvis is performed using both transabdominal and transvaginal transducers along with Doppler. Transvaginal imaging is performed due to inadequate visualization transabdominally. FINDINGS: Uterus: The uterus is retroverted and measures 10.5 x 3.8 x 5.8 cm. There is trace fluid in the endocervical canal. Endometrial stripe is obscured by an IUD. IUD projects in the upper uterine canal. The uterus is smooth in contour and has normal myometrial echogenicity. No visible fibroid. Adnexa: Both ovaries are visualized. There is normal color flow to the adnexa. There is no ovarian torsion. There is no pelvic ascites or fluid collection. Right ovary measures 2.5 x 1.1 x 1.5 cm. Left ovary measures 2.1 x 1.64 cm. There is a dominant follicle versus paraovarian cyst 1.5 cm in diameter, unchanged. US/US pelvic and transvaginal IMPRESSION: IUD is appropriately positioned in the upper uterine canal. Electronically signed by: Sin Chatterjee MD 03/20/2025 05:25 PM EDT
--- OUTSIDE RECORDS SUMMARY | 2025-03-20 16:12 | XMS_ITS | Clinical Summary ---
Author Organization [address] [place] [address] [place] [phone] Phone Care Team Providers Care Patternmaker Apprentice Metal Name Role Phone Jazmyn Parra MD Primary [...] Relation Name Status Comments Father Alive dm, [place] at age 6 3 Maternal Grandfather Maternal [...] Influencers of Health Screening 08/22/2022 COVID-19 Vaccine (1 - 2023-2 5 season) 2024 Influenza Vaccine (#1) 2025 06/04/2009 DTaP,Tdap,and Td Vaccines (3 - [...] 5 Years) and At-Risk Patients (6 to 49 Years) Aged Out No longer eligible b [...] RESULTING AGENCY - 07/22/2018 8:17 AM EST [id number] THINPREP PAP, IMAGED: NEGATIVE FOR SQUAMOUS INTRAEPITHELIAL LESION AND MALIGNANCY . ABUNDANT RED BLOOD CELLS ARE PRESENT. KIMBERLY MATUTE(ASCP) (CASE ELECTRONICALLY SIGNED 07 21 2018) RESULT OF APTIMA HIGH RISK HPV ASSAY: HIGH RISK HPV: NEGATIVE (SEROTYPES 16,18,31,33,35,39,45,51,52,56,58,59,66,68) COMPLETED ON 2018-07-20 ADEQUACY: SATISFACTORY ENDOCERVICAL/TRANSFORMATION ZONE COMPONENT PRESENT. SOURCE: THINPREP PAP HPV ANY DX: REFLEX 16 AND 18, CERVICAL, IMAGED: CLINICAL INFORMATION: HPV ANY DIAGNOSIS. Z12.4, Z01.419, R87.610, PAP HX: POSITIVE ATYPICAL SQUAMOUS CELLS OF UNDETERMINED SIGNIFICANCE (ASCUS) us Bean Mock CN LAB CYTOLOGY ORDERA BLES Final Result HISTORICAL TESTING LAB RESULTING AGENCY * HIV Screening (06/04/2009) Pathologist [facility] HIV Screening Abstracted us Historical Provider HEALTH MAINTENANCE Final Result from Last 3 Months or Most Recently Relevant to Health Maintenance Insurance [employer] Care Teams Patternmaker Apprentice Metal Relationship Specialty Start Date End Date Jazmyn Parra MD [address] [place] [id number] PCP - General Internal Medicine 06/15/22
== END 2025-03-20 16:02 | disposition home or self-care (01) ==
LOC: HO.US 16:01
PROVIDERS: PCP Internal Medicine; Visit Provider Advanced Practice Midwife
DX: T83.32XA Displacement of intrauterine contraceptive device, initial encounter (principal)
CPT/HCPCS: 76830; 76856

== ENCOUNTER → 2025-03-20 16:03 | Outpatient (BNV) | payer OTHER, SELFPAY | PROVIDERS: PCP Internal Medicine; Visit Provider Radiology Diagnostic Radiology | DX: T83.32XA Displacement of intrauterine contraceptive device, initial encounter (principal); N89.8 Other specified noninflammatory disorders of vagina | CPT/HCPCS: 76830; 76856 ==

== ENCOUNTER 2025-04-11 12:35 | Outpatient (AMB) | payer OTHER, SELFPAY ==
--- NOTE | 2025-04-11 12:35 | A.OFFVIS_ITS ---
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 Time spent included review of pertinent office notes in the electronic health record; review of laboratory and imaging results; review of personal family medical history; discussing diagnosis and plan of care with the patient; documenting the encounter in the EMR. Patient presents to discuss: Ultrasound follow up history of missing Mirena IUD strings. Use for contraception purposes. Previous exam excessive discharge, has resolve with treatment for bacterial vaginosis. She admits to vaginal dryness. No other concerns. [facility] Medical History (Updated 04/11/25 @ 12:56 by Kylie Ramos CNM) IUD (intrauterine device) in place Vaginal dryness IUD strings lost Hx of anxiety disorder Surgical History Hx of section Family History Maternal Grandmother Colon cancer Social History Alcohol intake: current Alcohol intake frequency: does not drink Patient Tobacco Use Status: Never used Tobacco Substance Use Type: Marijuana Current occupational status: employed Sexual orientation: Straight/Heterosexual Gender identity: Female Female Reproductive History Menstrual Age of Menarche: 17 Review of Systems Const All systems reviewed & are unremarkable except as noted in HPI and below Endo Reports no additional complaints Physical Exam Const General: cooperative, healthy appearing and no acute distress Psych Appearance: well kempt Attitude: cooperative Thought process: Normal thought process present Telehealth Telehealth Telehealth Platform: [employer] Location of provider rendering services: practice address Location of patient: address on file Patient Identification confirmed using: Name, : Yes Telehealth method: video Patient verbally consented to treatment: Yes Patient verbally consented to billing insurance company: Yes Patient informed of any privacy concerns related to visit: Yes Results Reviewed Results Reviewed: [address] [address] Ultrasound Report Signed Patient: Philomena Bush MR#: [id number] : 1980 Acct:[id number] Age/Sex: 44 / F ADM Date: 03/20/25 Loc: HO.US Attending Dr: Kylie Ramos CNM Ordering Physician: Kylie Ramos CNM Date of Service: 03/20/25 Procedure(s): US pelvic and transvaginal Accession Number(s): [id number] cc: Kylie Ramos CNM; Felisha Valle MD~ EXAMINATION: US PELVIS CLINICAL INFORMATION: IUD check COMPARISON: March 08, 2023 TECHNIQUE: Ultrasound of the pelvis is performed using both transabdominal and transvaginal transducers along with Doppler. Transvaginal imaging is performed due to inadequate visualization transabdominally. FINDINGS: Uterus: The uterus is retroverted and measures 10.5 x 3.8 x 5.8 cm. There is trace fluid in the endocervical canal. Endometrial stripe is obscured by an IUD. IUD projects in the upper uterine canal. The uterus is smooth in contour and has normal myometrial echogenicity. No visible fibroid. Adnexa: Both ovaries are visualized. There is normal color flow to the adnexa. There is no ovarian torsion. There is no pelvic ascites or fluid collection. Right ovary measures 2.5 x 1.1 x 1.5 cm. Left ovary measures 2.1 x 1.64 cm. There is a dominant follicle versus paraovarian cyst 1.5 cm in diameter, unchanged. US/US pelvic and transvaginal IMPRESSION: IUD is appropriately positioned in the upper uterine canal. 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 Discussed when to call for any irregular bleeding, pelvic pain, pressure for bloating. IUD replacement in about 2 years, if noticing menses are returning thin change the IUD out sooner. The patient expressed understanding and agreement with the plan of care. All of her questions and concerns were addressed to the best of my ability. (2) Vaginal dryness: Code(s): N89.8 - Other specified noninflammatory disorders of vagina Category: Medical Plan Discussed: Effects of perimenopause, hormonal influences. Recommended Replens moisturizer, reviewed use, may take up to 3 months to work, can use an additional lubricant with the intimacy and the moment. The patient expressed understanding and agreement with the plan of care. All of her questions and concerns were addressed to the best of my ability. This note is constructed using voice recognition software. While every effort has been made to ensure accuracy, youth development professional errors may have been included. Keep appointment for annual exam July 2025. Coding Level of Care Code Tele Est Pt Level 3 (87545) Diagnoses Intrauterine contraceptive device threads lost, initial encounter T83.32XA Encounter type: initial encounter Vaginal dryness N89.8
--- OUTSIDE RECORDS SUMMARY | 2025-04-11 13:10 | XMS_ITS | Clinical Summary ---
Author Organization [address] [place] [address] [place] [phone] Phone Care Team Providers Care Swing Driver Name Role Phone Jazmyn Parra MD Primary [...] Relation Name Status Comments Father Alive dm, MD at age 6 3 Maternal Grandfather Maternal [...] P ap Smear 07/18/2021 07/18/2018, 07/18/2018, 07/18/2018 Hepatitis C Screening 08/22/2022 Social Influencers of Health Screening 08/22/2022 COVID-19 Vaccine (1 - 2023-2 5 season) 2024 Depression Screening 09/13/2024 Influenza Vaccine (#1) 2025 06/04/2009 DTaP,Tdap,and Td [...] RESULTING AGENCY - 07/22/2018 8:17 AM EST [id number] THINPREP PAP, IMAGED: NEGATIVE FOR SQUAMOUS INTRAEPITHELIAL LESION AND MALIGNANCY . ABUNDANT RED BLOOD CELLS ARE PRESENT. KIMEBRLY MATUTE(ASCP) (CASE ELECTRONICALLY SIGNED 07 21 2018) [...] Health Maintenance Insurance [employer] Care Teams Swing Driver Relationship Specialty Start Date End Date Jazmyn Parra MD [address] [place] [id number] PCP - General Internal Medicine 06/15/22
== END 2025-04-11 13:58 | disposition home or self-care (01) ==
LOC: HO.HWS 12:35
PROVIDERS: PCP Internal Medicine; Visit Provider Advanced Practice Midwife
DX: T83.32XA Displacement of intrauterine contraceptive device, initial encounter (principal); N89.8 Other specified noninflammatory disorders of vagina
CPT/HCPCS: 98005